=== PATIENT | male | born 1965 | race Caucasian/White ===

== ENCOUNTER 2017-08-08 15:59 | Emergency (ER) | payer OTHER ==
[2017-08-08 17:25] LABS: #Eosinphils 0.1 thou/uL (0.0-0.7); #Lymphocytes 1.3 thou/uL (1.20-3.40); #Monocytes 1.2 thou/uL (0.11-0.59); #Neutrophils 6.1 thou/uL (1.40-6.50); %Basophils 0.4 % (0.0-1.0); %Eosinophils 0.9 % (0.0-10.0); %Lymphocytes 14.7 % (21.0-51.0); %Monocytes 13.5 % (0.0-10.0); Hematocrit 42.3 % (42.0-52.0); Mean Platelet Volume 6.4 fL (7.4-10.4); Red Blood Cell (RBC) Count 4.46 mill/uL (4.70-6.10); White Blood Cell (WBC) Count 8.6 thou/uL (4.8-10.8)
[2017-08-08] MEDS ORDERED: Ketorolac Tromethamine 30 MG/ML VIAL ONE (17:28)
[2017-08-08] MEDS ORDERED: Ondansetron HCl/PF 4 MG/2 ML Vial ONE (17:28)
[2017-08-08 17:39] LABS: ALT (SGPT) 18 U/L (8-55); AST (SGOT) 19 U/L (5-34); Alkaline Phosphatase 86 U/L (40-150); Anion Gap 12 mmol/L (10-20); BUN (Urea Nitrogen) 13 mg/dL (8.9-20.6); Bilirubin, Total 0.4 mg/dL (0.2-1.2); Calc. Creatinine Clearance 0 mL/min (70-130); Calcium 9.4 mg/dL (7.8-10.44); Carbon Dioxide 29 mmol/L (22-29); Chloride 100 mmol/L (98-107); Estimated GFR-MDRD 61; Globulin 2.9 g/dL (2.4-3.5); Lipase 5 U/L (8-78)
--- NOTE | 2017-08-08 17:51 | CT ---
CT ABDOMEN AND PELVIS WITHOUT CONTRAST STONE PROTOCOL 08/08/17 HISTORY: Left flank pain. COMPARISON: None. FINDINGS: The lung bases appear clear. No pericardial effusion. There is moderate left hydroureteronephrosis due to a proximal left ureter obstructive calculus which measures 3 x 5 x 6 mm. This calculus is approximately 2 cm distal to the ureteropelvic junction. No other calculus is seen within the left ureter. There are punctate calculi in the left interpolar and superior renal collecting system as well as a 3 mm calculus in the right superior renal collecting sy stem and a punctate calculus in the right inferior and superior renal collecting systems. No right si ded hydroureteronephrosis. The urinary bladder is unremarkable. Mild diverticular disease sigmoid colon. The appendix is visualized and is normal. IMPRESSION: Obstructive calculus proximal left ureter 2 cm distal to the ureteropelvic junction measuring 3 x 5 x 6 mm. POS: [facility]
[2017-08-08 19:14] LABS: Bilirubin Negative (Negative); Blood, Urine Trace (Negative); Glucose, Urine (Dipstick) Negative (Negative); Ketone, Urine Negative (Negative); Nitrite Negative (Negative); Protein, Urine (Dipstick) Negative (Neg-Trace); Urobilinogen 0.2 mg/dL (0.2-1.0)
[2017-08-08 19:15] LABS: Bacteria/HPF None Seen HPF (None Seen); Hyaline Casts/LPF 4-6 HYALINE CAST LPF (0-3 Hyaline); RBC/HPF 0-3 HPF (0-3); Squamous Epithelial None Seen HPF (0-3)
== END 2017-08-08 20:06 | disposition home or self-care (01) ==
LOC: ERS 15:59
DX: N13.2 Hydronephrosis with renal and ureteral calculous obstruction (principal); I10 Essential (primary) hypertension; Z79.899 Other long term (current) drug therapy
CPT/HCPCS: 36415; 74176; 80053; 81003; 81015; 83690; 85025; 96361; 96374; 96375; J1885; J2405

== ENCOUNTER 2019-08-04 15:18 | Outpatient (CLI) | payer OTHER ==
--- NOTE | 2019-08-04 16:03 | RAD ---
3 views left great toe 08/04/2019 COMPARISON: None HISTORY: Joint pain FINDINGS: There is disc space narrowing and subchondral sclerosis at the first metatarsal-phalangeal joint and first interphalangeal joint. No fracture or dislocation. No erosive change or periarticular osteopenia. Subchondral cystic change on the basis of degenerative geode formation susp ected at the medial aspect of the first proximal phalanx distally IMPRESSION: Degenerative joint disease.
--- NOTE | 2019-08-04 16:05 | RAD ---
3 views right great: 08/04/2019 COMPARISON: None HISTORY: Joint pain FINDINGS: There is prominent degenerative change at the first metatarsal-phalangeal joint with joint space narrowing, subchondral sclerosis, and osteophyte formation. There is mild degenerative change at the first interphalangeal joint. No displaced fracture or evidence of dislocation seen. IMPRESSION: Degenerative joint disease.
== END 2019-08-04 15:19 | disposition home or self-care (01) ==
LOC: BICRAD 15:18
PROVIDERS: ATTEND Podiatrist
DX: M25.572 Pain in left ankle and joints of left foot (principal); M25.571 Pain in right ankle and joints of right foot; M19.072 Primary osteoarthritis, left ankle and foot; M19.071 Primary osteoarthritis, right ankle and foot

== ENCOUNTER 2024-08-31 08:34 | Outpatient (CLI) | payer OTHER ==
[2024-08-31] MEDS ORDERED: Magnevist 469MG/ML 20 ML VIAL ONE ×2 (12:01)
== END 2024-08-31 08:35 | disposition home or self-care (01) ==
LOC: BICMRI 08:34
PROVIDERS: ATTEND Student in an Organized Health Care Education/Training Program
DX: H53.40 Unspecified visual field defects (principal); Z98.890 Other specified postprocedural states
CPT/HCPCS: 70250; 70543; 70553; 82565